=== PATIENT | male | born 1975 | race Caucasian/White ===

== ENCOUNTER 2017-09-08 16:42 | Emergency (ER) | payer BC ==
[2017-09-08] MEDS ORDERED: Ketorolac 60 MG/2 ML SDV IM ONE (17:03)
--- NOTE | 2017-09-08 17:06 | EDM.PDOC ---
ED HPI GENERAL MEDICAL PROBLEM - General Chief Complaint: General Stated Complaint: RIBS PAIN Time Seen by Provider: 09/08/17 17:01 Source of Information: Reports: Patient History Limitations: Reports: No Limitations - History of Present Illness INITIAL COMMENTS - FREE TEXT/NARRATIVE: HISTORY AND PHYSICAL: []32-year-old male presenting with left rib pain History of Present Illness: []3 hours prior to coming to the emergency room patient was using the [employer] and went to shovel some of the ice that was not picked up. He fell slamming his side and his arm pinned underneath the left side. Review of Systems: As per history of present illness and below otherwise all systems reviewed and negative. Past medical history: As per history of present illness and as reviewed below otherwise noncontributory. Surgical history: As per history of present illness and as reviewed below otherwise noncontributory. Social history: No reported history of drug or alcohol abuse. Family history: As per history of present illness and as reviewed below otherwise noncontributory. Physical exam: Alert and oriented. Answering questions with full sentences in no shortness of breath. Pain is noted of coughing or taking a deep breath HEENT: Atraumatic, normocehpalic, pupils reactive, negative for conjunctival pallor or scleral icterus, mucous membranes moist, throat clear, neck supple, nontender, trachea midline. Lungs: Clear to auscultation, breath sounds equal bilaterally, chest non tender. Heart: S1S2, regular, negative for clicks, rubs, or JVD. Abdomen: Soft, nondistended, nontender. Negative for masses or hepatossplenmegaly. Negative for costovertebral tenderness. Pelvis: Stable nontender. Genitourinary: Deferred. Rectal: Deferred Extremities: Atraumatic, negative for cords or calf pain. Neurovascular unremarkable. Neuro: Awake, alert, oriented. Cranial nerves II through XII unremarkable. Cerebellum unremarkable. Motor and sensory unremarkable throughout. Exam nonfocal. Diagnostics: [Chest x-ray] Therapeutics: [Toradol 60 IM Impression: [Impression: Nondisplaced 10th rib fracture on the left] Plan: [Discharged to home Splint to cough and deep breathe several times daily Hydrocodone/APAP 5/325 one by mouth 3 times a day when necessary pain #10 with no refill to not drive while using this medication] Definitive disposition and diagnosis as appropriate pending reevaluation and review of above. Duration: Hour(s): (3) Location: Reports: Chest Left Rib Pain Pain Score (Numeric/FACES): 5 - Related Data Allergies Allergy/AdvReac Type Severity Reaction Status Date / Time No Known Allergies Allergy Verified 09/08/17 17:00 Home Meds: Home Meds . [No Known Home Meds] 12/30/15 [History] Past Medical History - Past Health History Medical/Surgical History: Denies Medical/Surgical History Musculoskeletal History: Reports: Fracture Other Musculoskeletal History: hx fx ankle - Past Surgical History Head Surgeries/Procedures: Reports: None Social & Family History - Alcohol Use Days Per Week of Alcohol Use: 2 Number of Drinks Per Day: 6 (drinks about a 12 pack per week) Total Drinks Per Week: 12 - Recreational Drug Use Recreational Drug Use: No Drug Use in Last 12 Months: No ED ROS GENERAL - Review of Systems Review Of Systems: ROS reveals no pertinent complaints other than HPI. ED EXAM, GENERAL - Physical Exam Exam: See Below (See dictation) Course - Vital Signs Last Recorded V/S: Last Vital Signs Temp 36.6 C 09/08/17 17:01 Pulse 94 09/08/17 17:01 Resp 16 09/08/17 17:01 BP 134/85 09/08/17 17:01 Pulse Ox 94 L 09/08/17 17:01 - Orders/Labs/Meds Orders: Active Orders 24 hr Category Date Time Status Ribs 2V wo Chest Lt [CR] Stat Exams 09/08/17 17:03 Taken Meds: Medications Discontinued Medications Generic Name Dose Route Start Last Admin Trade Name José Miguel PRN Reason Stop Dose Admin Ketorolac Tromethamine 60 mg 09/08/17 17:03 09/08/17 17:34 Toradol IM 09/08/17 17:04 60 mg ONETIME ONE Administration Departure - Departure Time of Disposition: 18:21 Disposition: Home, Self-Care 01 Condition: Good Clinical Impression: Left rib fracture Qualifiers: Encounter type: initial encounter Rib fracture type: single rib Fracture type: closed Qualified Code(s): S22.32XA - Fracture of one rib, left side, initial encounter for closed fracture - Discharge Information Referrals: PCP,None [Primary Care Provider] - Forms: ED Department Discharge Additional Instructions: The following information is given to patients seen in the emergency department who are being discharged to home. This information is to outline your options for follow-up care. We provide all patients seen in our emergency department with a follow-up referral. The need for follow-up, as well as the timing and circumstances, are variable depending upon the specifics of your emergency department visit. If you don't have a primary care physician on staff, we will provide you with a referral. We always advise you to contact your personal physician following an emergency department visit to inform them of the circumstance of the visit and for follow-up with them and/or the need for any referrals to a consulting specialist. The emergency department will also refer you to a specialist when appropriate. This referral assures that you have the opportunity for followup care with a specialist. All of these measure are taken in an effort to provide you with optimal care, which includes your followup. Under all circumstances we always encourage you to contact your private physician who remains a resource for coordinating your care. When calling for followup care, please make the office aware that this follow-up is from your recent emergency room visit. If for any reason you are refused follow-up, please contact the [facility] emergency department at and asked to speak to the emergency department charge nurse. You have a fractured rib on the left side Prescription has been written for hydrocodone/APAP 5/325 mg one tablet 3 times a day as needed for pain #[address] to not drive with this medication - My Orders Last 24 Hours: My Active Orders 09/08/17 17:03 Ribs 2V wo Chest Lt [CR] Stat - Assessment/Plan Last 24 Hours: My Active Orders 09/08/17 17:03 Ribs 2V wo Chest Lt [CR] Stat
[2017-09-08 18:37] VITALS: BP 126/74
--- NOTE | 2017-09-09 15:39 | CR ---
EXAM DATE: 09/08/17 PATIENT'S AGE: 42 Patient: VALERIE MONTELONGO Facility: [place], [place] Site . Site : 1975 Study: XRay Chest Left RIBS WO CXR [id number]/30/2017 5:49:59 PM Ordering Physician: Doctor Taylor Final Report: HISTORY: Fall. FINDINGS: Four views of the left ribs were obtained. No consolidation, pleural effusion or pneumothorax is seen. There is a nondisplaced fracture seen through the posterior left 10th rib. IMPRESSION: Posterior nondisplaced left 10th rib fracture. No pneumothorax. Dictated by Anusha Bolivar MD @ 09/08/2017 6:14:28 PM Dictated by: Anusha Bolivar MD @ 09/08/2017 18:14:36 (Electronic Signature) Report Signed by Proxy. [facility] CENTERLisa
== END 2017-09-08 18:35 | disposition home or self-care (01) ==
LOC: MW.ED 16:42
DX: S22.32XA Fracture of one rib, left side, initial encounter for closed fracture (principal); W00.0XXA Fall on same level due to ice and snow, initial encounter; F17.290 Nicotine dependence, other tobacco product, uncomplicated; Y93.H1 Activity, digging, shoveling and raking
CPT/HCPCS: 71100; 96372; 99283; J1885; 99282